=== PATIENT | male | born 1985 | race Caucasian/White ===

== ENCOUNTER 2017-07-14 13:53 | Emergency (ER) | payer OTHER ==
[~2017-07-14] VITALS: Ht 167.6 cm; Wt 79.4 kg
[2017-07-14 14:16] VITALS: BP 140/74
[2017-07-14] MEDS ORDERED: FAMOTIDINE 20 MG TABLET. PO ONE (14:30)
[2017-07-14] MEDS ORDERED: diphenhydrAMINE HCL 25 MG CAPSULE PO ONE (14:30)
[2017-07-14] MEDS ORDERED: predniSONE 10 MG TABLET PO ONE (14:30)
[2017-07-14] MEDS ORDERED: PRED50TA PO (14:40)
[2017-07-14] MEDS ORDERED: PROAIR HFA8.5 GM INH (14:41)
--- NOTE | 2017-07-14 14:41 | PHYS DOC ---
Past Medical History Past Medical History: Asthma, Depression Past Surgical History: No Surgical History Alcohol Use: Occasionally Drug Use: None Adult General Chief Complaint Chief Complaint: ALLERGIC REACTION HPI HPI Patient is a 31 year old male who presents with brought shortness chest and face. He states he's been on Lexapro, multivitamins, fish oils and 50 mg of potassium and this developed last week he started with itching and so he stopped all these meds and he developed hives. He took some Benadryl resolved last night restarted Lexapro this morning his vitamins and then his rash came back. He denies any trouble swallowing or breathing. He does feel like he has GERD-like symptoms which she had last week also when this developed. He comes in the ER because the rash is a little worse it was last time. He also has a history of asthma but doesn't feel like he is wheezing at this point. Review of Systems Review of Systems Constitutional: Denies fever or chills [] Eyes: Denies change in visual acuity, redness, or eye pain [] HENT: Denies nasal congestion or sore throat [] Respiratory: Denies cough or shortness of breath [] Cardiovascular: No additional information not addressed in HPI [] GI: Denies abdominal pain, nausea, vomiting, bloody stools or diarrhea [] : Denies dysuria or hematuria [] Musculoskeletal: Denies back pain or joint pain [] Integument: Positive for rash Neurologic: Denies headache, focal weakness or sensory changes [] Endocrine: Denies polyuria or polydipsia [] Current Medications Current Medications Current Medications Medications (Trade) Dose Ordered Sig/Kavitha Start Time Stop Time Status Last Admin Dose Admin Diphenhydramine HCl (Benadryl) 50 mg 1X ONCE 07/14/17 14:30 07/14/17 14:32 DC 07/14/17 14:41 50 MG Famotidine (Pepcid) 20 mg 1X ONCE 07/14/17 14:30 07/14/17 14:32 DC 07/14/17 14:41 20 MG Prednisone (Prednisone) 50 mg 1X ONCE 07/14/17 14:30 07/14/17 14:32 DC 07/14/17 14:41 50 MG Allergies Allergies Allergies Coded Allergies Type Severity Reaction Last Updated Verified escitalopram Allergy Intermediate 07/14/17 Yes Physical Exam Physical Exam Constitutional: Well developed, well nourished, no acute distress, non-toxic appearance. [] HENT: Normocephalic, atraumatic, bilateral external ears normal, oropharynx moist, no oral exudates, nose normal. Posterior pharynx clear, no stridor, no signs of Paramjit angina Eyes: PERRLA, EOMI, conjunctiva normal, no discharge. [] Neck: Normal range of motion, no tenderness, supple, no stridor. [] Cardiovascular:Heart rate regular rhythm, no murmur [] Lungs & Thorax: Bilateral breath sounds clear to auscultation [] Abdomen: Bowel sounds normal, soft, no tenderness, no masses, no pulsatile masses. [] Skin: Warm, dry, no erythema, pruritic type rash on forehead, cheeks, anterior chest, dorsum of bilateral feet. [] Back: No tenderness, no CVA tenderness. [] Extremities: No tenderness, no cyanosis, no clubbing, ROM intact, no edema. [] Neurologic: Alert and oriented X 3, normal motor function, normal sensory function, no focal deficits noted. [] Psychologic: Affect normal, judgement normal, mood normal. [] Current Patient Data Vital Signs Vital Signs Date Time Temp Pulse Resp B/P (MAP) Pulse Ox O2 Delivery O2 Flow Rate FiO2 07/14/17 14:16 98.4 65 20 98 Room Air 98.4 EKG EKG [] Radiology/Procedures Radiology/Procedures [] Impressions: Allergic reaction Course & Med Decision Making Course & Med Decision Making Pertinent Labs and Imaging studies reviewed. (See chart for details) It is hard to tell if this is his vitamins or Lexapro causing this. I've instructed to stop taking all this and follow-up with his primary care physician. He is being discharged with prednisone 50 mg daily for the next 5 days in addition to Pepcid and Benadryl as needed. Return precautions given for troubles swallowing, breathing, or other concerns. He is also asked for refill of his albuterol inhaler since he can't find it. Dragon Disclaimer Dragon Disclaimer This electronic medical record was generated, in whole or in part, using a voice recognition dictation system. Departure Departure Impression: Primary Impression: Allergic reaction Disposition: 01 HOME, SELF-CARE Condition: STABLE Patient Instructions: Lindsay Additional Instructions: You were seen today for hives and itching. You received pen and Benadryl, Pepcid , prednisone being discharged home. You can purchase Pepcid and Benadryl over- the-counter and follow instructions on the packaging. I've written a prescription for prednisone and your albuterol. If you have any trouble swallowing or breathing please return back to emergency department immediately. You need to stop taking your Lexapro, fish oils, potassium and multivitamins and follow-up with primary care physician for restarting any of these. You need to be careful because each allergic reaction can get more severe. Scripts Albuterol Sulfate (PROAIR HFA INHALER) 8.5 Gm Hfa.aer.ad 1 PUFF INH PRN Q6HRS Y for SHORTNESS OF BREATH, #1 INHALER 0 Refills Prov: GAYLA HINOJOSA MD 07/14/17 Prednisone (PREDNISONE) 50 Mg Tablet 1 TAB PO DAILY, #5 TAB Prov: GAYLA HINOJOSA MD 07/14/17 Problem Qualifiers Primary Impression: Allergic reaction Encounter type: initial encounter Qualified Codes: T78.40XA - Allergy, unspecified, initial encounter GAYLA HINOJOSA MD Jul 14, 2017 14:41
== END 2017-07-14 16:09 | disposition home or self-care (01) ==
LOC: ER 13:53
DX: L27.0 Generalized skin eruption due to drugs and medicaments taken internally (principal); T43.225A Adverse effect of selective serotonin reuptake inhibitors, initial encounter; T45.2X5A Adverse effect of vitamins, initial encounter; F32.9 Major depressive disorder, single episode, unspecified; J45.909 Unspecified asthma, uncomplicated; Z88.8 Allergy status to other drugs, medicaments and biological substances; Y92.89 Other specified places as the place of occurrence of the external cause
CPT/HCPCS: 99284; J7512; Q0163

== ENCOUNTER 2017-07-15 08:41 | Emergency (ER) | payer OTHER ==
[~2017-07-15] VITALS: Ht 167.6 cm; Wt 79.4 kg
[2017-07-15 08:41] VITALS: BP 113/75
[~2017-07-15 08:41] MED LIST: PRED50TA PO; PROAIR HFA8.5 GM INH
[2017-07-15] MEDS ORDERED: predniSONE 20 MG TABLET ONE (08:52)
[2017-07-15] MEDS ORDERED: predniSONE 20 MG TABLET PO ONE (09:00)
--- NOTE | 2017-07-15 09:16 | PHYS DOC ---
Past Medical History Past Medical History: Asthma, Depression Past Surgical History: No Surgical History Alcohol Use: Occasionally Drug Use: None Adult General Chief Complaint Chief Complaint: ALLERGIC REACTION HPI HPI Patient is a 31 year old male who presents with complaints of rash and allergic reaction. She states he hasn't been taking his normal medications the last 2 days was getting better after taking meds male but he started expressing the rash again yesterday, he has not taken his prednisone as directed in the previous visit. Review of Systems Review of Systems Constitutional: Denies fever or chills [] Eyes: Denies change in visual acuity, redness, or eye pain [] HENT: Denies nasal congestion or sore throat [] Respiratory: Denies cough or shortness of breath [] Cardiovascular: No chest pain GI: Denies abdominal pain, nausea, vomiting, bloody stools or diarrhea [] Musculoskeletal: Denies back pain or joint pain [] Integument: Diffuse rash Neurologic: Denies headache, focal weakness or sensory changes [] Endocrine: Denies polyuria or polydipsia [] Current Medications Current Medications Current Medications Medications (Trade) Dose Ordered Sig/Kavitha Start Time Stop Time Status Last Admin Dose Admin Prednisone (Prednisone) 60 mg 1X ONCE 07/15/17 09:00 07/15/17 09:01 DC 07/15/17 08:56 60 MG Allergies Allergies Allergies Coded Allergies Type Severity Reaction Last Updated Verified escitalopram Allergy Intermediate 07/14/17 Yes Physical Exam Physical Exam Constitutional: Well developed, well nourished, no acute distress, non-toxic appearance. [] HENT: Normocephalic, atraumatic, oropharynx moist, no oral exudates, no swelling , no stridor, no drooling, no airway compromise, nose normal. [] Eyes: EOMI, conjunctiva normal, no discharge. [] Neck: Normal range of motion, no tenderness, supple, no stridor. [] Cardiovascular:Heart rate regular rhythm, no murmur [] Lungs & Thorax: Bilateral breath sounds clear to auscultation, no tachypnea Abdomen: Bowel sounds normal, soft, no tenderness, no masses, no pulsatile masses. [] Skin: Diffuse erythematous rash upper chest and neck face. There is no desquamation, no petechia Back: Normal range of motion Extremities: No tenderness, no cyanosis, no DVT ROM intact, no edema. [] Neurologic: Alert and oriented X 3, normal motor function,, no focal deficits noted. [] Psychologic: Affect normal, judgement normal, mood normal. [] Current Patient Data Vital Signs Vital Signs Date Time Temp Pulse Resp B/P (MAP) Pulse Ox O2 Delivery O2 Flow Rate FiO2 07/15/17 08:41 98.2 80 14 113/75 (88) 93 Room Air 98.2 EKG EKG [] Radiology/Procedures Radiology/Procedures [] Course & Med Decision Making Course & Med Decision Making Pertinent Labs and Imaging studies reviewed. (See chart for details) Patient looks well, blood pressures 113 systolic and they ED patient is not tachycardic. Patient is not vomiting or having abdominal pain or diarrhea. No concern for anaphylaxis at this time. We will give the patient steroids as he has not taken them as directed and observe him in the ED 1034 patient remains in no distress, vital signs are unremarkable, airways patent and without compromise, no stridor no wheezing. Last Auscultation bilaterally, no tachypnea. Patient feels improved and has no objections to being discharged home. Will take medications as prescribed and follow-up with his PCP for further evaluation and testing and referral to crm analyst if necessary. [] Dragon Disclaimer Dragon Disclaimer This electronic medical record was generated, in whole or in part, using a voice recognition dictation system. Departure Departure Impression: Primary Impression: Allergic reaction Disposition: HOME, SELF-CARE Condition: IMPROVED Referrals: GAGE HUERTA MD (PCP) Patient Instructions: Allergies, Generic Additional Instructions: Please follow your doctor for recheck and reevaluation in 2 days, this discussed with your doctor possible need for referral to crm analyst for further testing. Please take your previously prescribed medications as directed. Michael ALMONTE MD Jul 15, 2017 09:16
== END 2017-07-15 10:57 | disposition home or self-care (01) ==
LOC: ER 08:41
DX: T78.40XA Allergy, unspecified, initial encounter (principal); R21 Rash and other nonspecific skin eruption; J45.909 Unspecified asthma, uncomplicated; X58.XXXA Exposure to other specified factors, initial encounter; Z88.8 Allergy status to other drugs, medicaments and biological substances
CPT/HCPCS: 99284; J7512